=== PATIENT | male | born 1990 | race Caucasian/White ===

== ENCOUNTER 2021-07-16 20:35 | Emergency (ER) | payer BC ==
[2021-07-16 22:09] LABS: HEMOGLOBIN 15.6 gm/dl (14.0-17.5); RED BLOOD COUNT 4.98 M/UL (4.20-5.50); WHITE BLOOD COUNT 12.6 K/UL (4.5-11.0)
[2021-07-16 22:34] LABS: BUN/CREATININE RATIO 14 (0-10)
[2021-07-17] MEDS ORDERED: CARAFATE 1 GM TA1 GM PO (03:23)
== END 2021-07-17 03:31 | disposition home or self-care (01) ==
LOC: ER1 20:35
PROVIDERS: Physician Assistant
DX: K29.70 Gastritis, unspecified, without bleeding (principal); K21.9 Gastro-esophageal reflux disease without esophagitis; Z88.2 Allergy status to sulfonamides; Z20.822 Contact with and (suspected) exposure to COVID-19
CPT/HCPCS: 80053; 81001; 83690; 85025; 87081; 87086; 87880; 99284; Q9967; U0002